=== PATIENT | female | born 1975 | race Caucasian/White ===

== ENCOUNTER → 2016-09-26 | Outpatient (CLI) | payer OTHER ==
[~2016-09-26] MED LIST: ESCI10TA PO; HYDR-3730 PO; LEVO25TA2 PO; METF500T4 PO
--- NOTE | 2016-09-26 18:07 | Diagnostic Imaging Report ---
PROCEDURE: CT abdomen and pelvis without contrast. TECHNIQUE: Multiple contiguous axial images were obtained through the abdomen and pelvis without the use of intravenous contrast. INDICATION: Recurrent urinary tract infections, microscopic hematuria, low-grade fever. Study compared 01/31/2010. FINDINGS: There are no opaque kidney stones. No opaque ureteral calculi. There is no hydronephrosis. The urinary bladder is unopacified and nearly empty. There is an IUD device within the uterus oriented to the left. Air-containing appendix visualized and normal. Liver, gallbladder, spleen, adrenals and pancreas unremarkable. The aorta is nonaneurysmal. There is no ascites, abscess, hematoma or fluid collection. No pneumatosis. No free air. The lung bases and the osseous structures nonacute. IMPRESSION: Normal appendix. No opaque kidney stone. No hydronephrosis. IUD present with no acute-appearing abnormality. Dictated by: Dictated on workstation # [id number]
== END ==
LOC: RAD 14:20
PROVIDERS: ATTEND Urology
DX: N39.0 Urinary tract infection, site not specified (principal); R31.29 Other microscopic hematuria; Z97.5 Presence of (intrauterine) contraceptive device
CPT/HCPCS: 74176

== ENCOUNTER → 2016-10-12 | Outpatient (CLI) | payer OTHER ==
--- NOTE | 2016-10-12 19:04 | Diagnostic Imaging Report ---
INDICATION: Fever, pelvic pain. One week post IUD removal. TECHNIQUE: Multiple real time brock scale sonographic images were obtained of the pelvis transabdominally and endovaginally. CORRELATION STUDY: None. FINDINGS: UTERUS/ENDOMETRIUM: Uterus measures 8.5 x 5.0 x 4.5 cm. The uterus has an unremarkable appearance. The endometrium is normal in thickness measuring 4 mm. There is a small amount of fluid noted in the endometrial canal near the cervix, may be reflective of perhaps some blood. RIGHT OVARY: 3.1 x 2.7 x 2.0 cm. LEFT OVARY: 2.9 x 2.4 x 1.9 cm. Small cysts and/or follicles of the ovaries are present. Slightly larger one suggested about the left ovary measures 1.6 x 2.0 x 1.6 cm. Vascular flow is demonstrated to both ovaries. No significant free pelvic fluid. IMPRESSION: 1. Small amount of fluid within the lower endometrial canal. This is nonspecific. This could be reflective of some blood products or perhaps residual fluid post IUD removal. 2. Likely physiologic ovarian cysts and/or follicles. Largest at the left ovary of 2 cm in size. Dictated by: Dictated on workstation # [id number]
== END ==
LOC: RAD 16:01
PROVIDERS: ATTEND Nurse Practitioner
DX: N39.0 Urinary tract infection, site not specified (principal); R50.9 Fever, unspecified; R10.2 Pelvic and perineal pain
CPT/HCPCS: 76830; 76856

== ENCOUNTER → 2016-11-22 | Outpatient (CLI) | payer OTHER ==
--- NOTE | 2016-11-22 12:11 | Diagnostic Imaging Report ---
PA and lateral views of the chest Indication: Fever and fatigue Findings: The lungs are clear. The heart size is normal. There is no effusion or pneumothorax The mediastinum and amalia appear unremarkable. Impression: Unremarkable study. Dictated by: Dictated on workstation # [id number]
[2016-11-22 13:36] LABS: THYROID STIMULATING HORMONE 1.38 UIU/ML (0.35-4.94)
[2016-11-23 07:53] LABS: VITAMIN D 25-HYDROXY (TOTAL) 33 ng/mL (30-100)
[2016-11-23 13:45] LABS: EHRLICHIA CHAFFEENSIS G ABY <1:16 (<1:16)
[2016-11-23 15:53] LABS: IGG ROCKY MOUNTAIN SPOTTED FEV <1:16 (<1:16); IGM ROCKY MOUNTAIN SPOTTED FEV <1:10 (<1:10)
[2016-11-23 20:47] LABS: LYME AB G M < 0.01 Index (0.00-0.89)
[2016-11-24 07:35] LABS: LYME AB INTERP Negative (Negative)
== END ==
LOC: RAD 11:30
PROVIDERS: ATTEND Internal Medicine Infectious Disease
DX: R50.9 Fever, unspecified (principal); R53.82 Chronic fatigue, unspecified
CPT/HCPCS: 36415; 71020; 82306; 84439; 84443; 84481; 86618; 86638; 86666; 86668; 86757; 87040

== ENCOUNTER → 2016-11-23 | Outpatient (CLI) | payer OTHER | LOC: LAB 10:18 | PROVIDERS: ATTEND Internal Medicine Infectious Disease | DX: R50.9 Fever, unspecified (principal); R53.82 Chronic fatigue, unspecified | CPT/HCPCS: 36415; 87040 ==

== ENCOUNTER → 2016-11-23 | Outpatient (CLI) | payer OTHER ==
[2016-11-23 10:51] LABS: MEAN PLATELET VOLUME 11.5 FL (7.4-10.4); RED BLOOD COUNT 4.58 10^6/uL (4.35-5.85); RED CELL DISTRIBUTION WIDTH 12.7 % (10.0-14.5); WHITE BLOOD COUNT 5.1 10^3/uL (4.3-11.0)
[2016-11-24 07:44] LABS: IMMUNOGLOBULIN IGG 1032 mg/dL (672-1680); IMMUNOGLOBULIN IGM 48 mg/dL (47-209)
== END ==
LOC: LAB 10:25
PROVIDERS: ATTEND Physician Assistant
DX: R50.9 Fever, unspecified (principal); R53.83 Other fatigue
CPT/HCPCS: 36415; 82784; 85027; 86644; 86645; 86663; 86664; 86665

== ENCOUNTER → 2016-11-24 | Outpatient (CLI) | payer OTHER ==
[~2016-11-24] MED LIST changes: +CHOL500044 PO
--- NOTE | 2016-11-24 14:39 | ECHOCARDIOGRAPHY REPORT ---
DATE OF SERVICE: 11/24/2016 2D ECHOCARDIOGRAM REFERRING PHYSICIAN: Dr. Nicho Lee and Dr. Devora Tovar TEST DATE: 11/24/2016 MEASUREMENT: LVID end diastolic 4.2, IVS thickness 1.0, LVPW thickness 1.0, left atrial diameter 3.1, ejection fraction 65%. FINDINGS: 1. Technical quality is good. 2. The left ventricle is normal in size with normal contractility, systolic function appeared to be normal, estimated ejection fraction 65%. 3. The left atrium is normal in size. No clot or thrombus was seen within the left atrium. 4. The right atrium and right ventricle are normal in size. No clot or thrombus was seen within the right side. 5. Mitral valve is normal in morphology with no significant mitral regurgitation, no mitral valve prolapse, no mitral valve stenosis. 6. Aortic valve is mildly thickened mainly on the right aortic cusp. It is still functioning normally, no significant aortic stenosis or regurgitation was seen. 7. Tricuspid valve is normal in morphology with mild tricuspid regurgitation noted by color Doppler flow. Doppler across the tricuspid valve estimated pulmonary artery pressure of 19 plus right atrial pressure. 8. Pulmonic valve is functioning normally. 9. No pericardial effusion. CONCLUSION: 1. Normal left ventricular size and systolic function, estimated ejection is fraction 65%. 2. Mild thickening of the right aortic cusp, no vegetation was noted, no significant aortic stenosis or regurgitation. 3. Estimated pulmonary artery pressure of 25 mmHg. Job ID: [id number] DocumentID: [id number] Dictated Date: 11/24/2016 13:33:30 Drone Pilot Date: 11/24/2016 13:53:45 Dictated By: MILLIE MASTERS MD
== END ==
LOC: CARD 08:04
PROVIDERS: ATTEND Internal Medicine Cardiovascular Disease
DX: R07.9 Chest pain, unspecified (principal); R50.9 Fever, unspecified
CPT/HCPCS: 93306

== ENCOUNTER 2016-11-29 13:00 | Outpatient (CLI) | payer OTHER ==
[~2016-11-29] VITALS: Ht 157.5 cm; Wt 69.9 kg
[~2016-11-29 13:00] MED LIST changes: -CHOL500044 PO
[2016-11-29] MEDS ORDERED: CHOL500044 PO (13:12)
[2016-11-30] MEDS ORDERED: PANT40TA2 PO (12:22)
== END 2016-11-29 13:22 ==
LOC: PREOP 13:00
PROVIDERS: ATTEND Surgery
DX: Z01.818 Encounter for other preprocedural examination (principal); K21.9 Gastro-esophageal reflux disease without esophagitis; R19.5 Other fecal abnormalities

== ENCOUNTER 2016-11-30 10:00 | Day surgery (SDC) | payer OTHER ==
[~2016-11-30 10:00] MED LIST changes: +CHOL500044 PO
[2016-11-30] MEDS ORDERED: HURRICAINE EXT TUBE (BENZOCAINE) XX PRN (10:15)
[2016-11-30] MEDS ORDERED: NS IV 500 ML 500 ML IV PRN (10:15)
[2016-11-30] MEDS ORDERED: FLUMAZENIL (ROMAZICON) 0.1 MG/ML 5 ML VIAL INJ PRN (10:15)
[2016-11-30] MEDS ORDERED: NALOXONE 0.4 MG/ML 1 ML (NARCAN) VIAL IVP PRN (10:15)
[2016-11-30 10:18] VITALS: BP 123/69
[2016-11-30] MEDS ORDERED: NS IV 500 ML 500 ML ONE (10:19)
--- NOTE | 2016-11-30 11:12 | Conscious Sedation/ASA ---
Conscious Sedation Pre-Proced Time Reviewed: 11:12 ASA Class: 2 Airway Mallampati Classification: ([place] appropriate class) I. II. III, IV Lungs Heart ASA score ASA 1: a normal healthy patient ASA 2: a patient with a mild systemic disease (mid diabetes, controlled hypertension, obesity ASA 3: a patient with a severe systemic disease that limits activity (angina , COPD, prior Myocardial infarction) ASA 4: a patient with an incapacitating disease that is a constant threat to life (CHF, renal failure) ASA 5: a moribund patient not expected to survive 24 hrs. (ruptured aneurysm) ASA 6: a declared brain patient whose organs are being harvested. For emergent operations, add the letter E after the classification Grade 1 Sedation Plan: Discussed options with patient/fam Note The patient is an appropriate candidate to undergo the planned procedure, sedation, and anesthesia. The patient immediately re-assessed prior to indication. GABBI MEDEL MD Nov 30, 2016 11:12 am
[2016-11-30] MEDS ORDERED: MIDAZOLAM 2 MG/2 ML (VERSED) VIAL ONE ×5 (11:46→11:47)
[2016-11-30] MEDS ORDERED: fentaNYL INJECTION 100 MCG/2 ML AMP ONE ×2 (11:46)
[2016-11-30] MEDS ORDERED: HURRICAINE EXT TUBE (BENZOCAINE) ONE (11:47)
[2016-11-30] MEDS: fentaNYL INJECTION 100 MCG/2 ML AMP IVP PRN ×3 (11:55→12:05)
[2016-11-30] MEDS: MIDAZOLAM 2 MG/2 ML (VERSED) VIAL IVP PRN ×4 (11:56→12:06)
--- NOTE | 2016-11-30 12:19 | Endoscopy Procedure Report ---
Endoscopy Report Date: Nov 30, 2016 Preoperative Diagnosis: GERD. Change in bowel habits Study Performed: Upper Endoscopy, Colonoscopy Procedure Instrument: Endoscope Endo Procedure/Findings Findings 1.: Normal, Gastric Ulcer Copy Copies To 1: MARKO MENDOZA MD,GABBI Allen MD Nov 30, 2016 12:19 pm
[2016-11-30] MEDS ORDERED: PANT40TA2 PO ×2 (12:22)
--- NOTE | 2016-11-30 12:24 | Discharge Inst-Simple/Standard ---
Discharge Inst-Standard Discharge Medications New, Converted or Re-Newed RX: RX on Chart Patient Instructions/Follow Up Plan of Care/Instructions/FU: follow-up with her primary Activity as Tolerated: Yes Discharge Diet: No Restrictions GABBI MEDEL MD Nov 30, 2016 12:24 pm
[2016-11-30 12:35] VITALS: BP 102/57
[2016-11-30 13:05] VITALS: BP 115/73
[2016-11-30 13:16] VITALS: BP 115/73
--- NOTE | 2016-11-30 14:48 | OPERATIVE REPORT ---
DATE OF SERVICE: 11/30/2016 PROCEDURES: 1. Upper gastrointestinal endoscopy with antral biopsy. 2. Colonoscopy. SURGEON: Gabbi Medel MD INDICATION FOR PROCEDURE: This lady came in for an upper endoscopy to evaluate symptoms of reflux disease and for colonoscopy to investigate a change in her bowel habits. Informed consent was obtained after reviewing the procedures in detail. DESCRIPTION OF PROCEDURE: Upper GI endoscopy/antral biopsy: She was placed in left lateral decubitus position and her vital signs were monitored. Conscious sedation was achieved using Versed and fentanyl. The flexible gastroscope was introduced down the esophagus, passed the stomach, into the proximal duodenum. FINDINGS: ESOPHAGUS: Grade II esophagitis. STOMACH: Multiple distal gastric erosions and shallow ulcers were found. Photo documentation and biopsy for H. pylori were obtained. DUODENUM: Normal. She tolerated the procedure well and was turned around in preparation for colonoscopy. IMPRESSION: Symptoms of reflux disease, esophagitis and gastric ulcers. Helicobacter status pending. PROCEDURE: Colonoscopy. DESCRIPTION OF PROCEDURE: Digital rectal examination was unremarkable. The colonoscope was then introduced into the rectum and advanced all the way up to the cecum. The scope was then withdrawn slowly and the mucosa examined in a systematic fashion. There was no abnormality. She tolerated the procedure well and was taken back to the nursing area in a stable condition. IMPRESSION: Change in bowel habits. Normal colonoscopy. Job ID: [id number] DocumentID: [id number] Dictated Date: 11/30/2016 12:15:18 Clinical Psychologist Licensed Date: 11/30/2016 13:36:40 Dictated By: GABBI MEDEL MD MTDD
== END 2016-11-30 13:15 | disposition home or self-care (01) ==
LOC: ENDO 10:00
PROVIDERS: ATTEND Surgery
DX: R19.4 Change in bowel habit (principal); K20.9 Esophagitis, unspecified; K25.9 Gastric ulcer, unspecified as acute or chronic, without hemorrhage or perforation; K21.9 Gastro-esophageal reflux disease without esophagitis; F32.9 Major depressive disorder, single episode, unspecified; Z79.899 Other long term (current) drug therapy
CPT/HCPCS: 84703; 88305

== ENCOUNTER → 2016-12-01 | Outpatient (CLI) | payer OTHER ==
[~2016-12-01] MED LIST changes: +PANT40TA2 PO
== END ==
LOC: LAB 12:47
PROVIDERS: ATTEND Physician Assistant
DX: R50.9 Fever, unspecified (principal); R53.83 Other fatigue
CPT/HCPCS: 36415; 87799

== ENCOUNTER → 2016-12-04 | Outpatient (CLI) | payer OTHER | LOC: LAB 12:00 | PROVIDERS: ATTEND Physician Assistant | DX: R53.83 Other fatigue (principal) | CPT/HCPCS: 36415; 86668 ==

== ENCOUNTER → 2016-12-06 | Outpatient (CLI) | payer OTHER | DX: R50.9 Fever, unspecified (principal); G93.3 Postviral and related fatigue syndromes ==

== ENCOUNTER → 2018-04-24 | Outpatient (CLI) | payer OTHER ==
[~2018-04-24] MED LIST changes: +METF-397 PO; -METF500T4 PO
[2018-04-24 08:38] LABS: BASOPHILS % (AUTO) 1 % (0-10); EOSINOPHILS # (AUTO) 0.1 10^3/uL (0.0-0.3); EOSINOPHILS % (AUTO) 1 % (0-10); HEMATOCRIT 42 % (35-52); HEMOGLOBIN 14.1 G/DL (11.5-16.0); LYMPHOCYTES # (AUTO) 1.9 X 10^3 (1.0-4.0); LYMPHOCYTES % (AUTO) 33 % (12-44); MEAN CORPUSCULAR HEMOGLOBIN 29 PG (25-34); MEAN CORPUSCULAR HGB CONC 34 G/DL (32-36); MEAN CORPUSCULAR VOLUME 86 FL (80-99); MEAN PLATELET VOLUME 10.7 FL (7.4-10.4); MONOCYTES # (AUTO) 0.6 X 10^3 (0.0-1.0); MONOCYTES % (AUTO) 10 % (0-12); NEUTROPHILS # (AUTO) 3.2 X 10^3 (1.8-7.8); NEUTROPHILS % (AUTO) 55 % (42-75); PLATELET COUNT 276 10^3/uL (130-400); RED BLOOD COUNT 4.83 10^6/uL (4.35-5.85); RED CELL DISTRIBUTION WIDTH 12.9 % (10.0-14.5); WHITE BLOOD COUNT 5.8 10^3/uL (4.3-11.0)
[2018-04-24 08:54] LABS: ALANINE AMINOTRANSFERASE 23 U/L (0-55); ALBUMIN 4.5 GM/DL (3.2-4.5); ALKALINE PHOSPHATASE 55 U/L (40-136); BILIRUBIN,TOTAL 0.5 MG/DL (0.1-1.0); BUN/CREATININE RATIO 20; CALCIUM 9.8 MG/DL (8.5-10.1); CARBON DIOXIDE 22 MMOL/L (21-32); CHLORIDE 105 MMOL/L (98-107); CHOLESTEROL 258 MG/DL (< 200); CREATININE SERUM 0.85 MG/DL (0.60-1.30); GFR ESTIMATED > 60; GLUCOSE 100 MG/DL (70-105); HDL CHOLESTEROL 63 MG/DL (40-60); POTASSIUM 3.8 MMOL/L (3.6-5.0); SODIUM 138 MMOL/L (135-145); TOTAL PROTEIN 7.5 GM/DL (6.4-8.2); TRIGLYCERIDES 124 MG/DL (<150); VLDL CHOLESTEROL 25 MG/DL (5-40)
[2018-04-24 09:15] LABS: FREE T4 (FREE THYROXINE) 0.95 NG/DL (0.70-1.48)
== END ==
LOC: LAB 08:22
PROVIDERS: ATTEND Family Medicine
DX: Z00.01 Encounter for general adult medical examination with abnormal findings (principal); R53.83 Other fatigue
CPT/HCPCS: 36415; 80053; 80061; 84439; 84443; 85025

== ENCOUNTER → 2019-08-22 | Outpatient (CLI) | payer OTHER ==
--- NOTE | 2019-08-22 13:49 | Diagnostic Imaging Report ---
EXAMINATION: Digital mammogram bilateral screening. The current study was also evaluated with a Computer Aided Detection (CAD) system. 3-D tomosynthesis was also performed and reviewed. INDICATION: Screening. This study was compared to the prior exam of 12/04/2014. At this time, there are no current complaints. FINDINGS: The fibroglandular tissue in both breasts is heterogeneously dense. This does limit the sensitivity of this exam. Overall, there does not appear to have been any significant change when compared to the prior study. No primary or secondary sign of malignancy is noted. 3D tomographic images fail to show any sign of malignancy. IMPRESSION: 1. There is no evidence for malignancy. 2. The patient should have her annual bilateral screening mammogram on schedule in August 2020. ACR BI-RADS Category 1: Negative. Result letter will be mailed to the patient. Note: At least 10% of breast cancer is not imaged by mammography. Dictated by: Dictated on workstation # [id number]
== END ==
LOC: RAD 10:08
PROVIDERS: ATTEND Obstetrics & Gynecology
DX: Z12.31 Encounter for screening mammogram for malignant neoplasm of breast (principal)
CPT/HCPCS: 77067

== ENCOUNTER 2021-02-24 10:00 | Outpatient (CLI) | payer OTHER ==
[~2021-02-24] VITALS: Ht 157.5 cm; Wt 70.5 kg
[2021-02-24] MEDS ORDERED: PHEN35TA PO (10:20)
[2021-02-24] MEDS ORDERED: NORT50CA PO (10:20)
[2021-02-24] MEDS ORDERED: SUCR1TAB36 PO (10:20)
[2021-02-24] MEDS ORDERED: DOCU-143 PO (10:50)
[2021-02-24] MEDS ORDERED: VITA1CAP PO (10:50)
[2021-02-24] MEDS ORDERED: OMEP40CA6 PO (10:50)
[2021-02-24] MEDS ORDERED: MAGN400C PO (10:50)
[2021-02-24] MEDS ORDERED: MV-M1TAB20 PO (10:50)
== END 2021-02-24 12:36 ==
LOC: PREOP 10:00
PROVIDERS: ATTEND Surgery
DX: Z01.812 Encounter for preprocedural laboratory examination (principal); K21.9 Gastro-esophageal reflux disease without esophagitis; Z20.822 Contact with and (suspected) exposure to COVID-19
CPT/HCPCS: 87635

== ENCOUNTER 2021-02-25 10:22 | Day surgery (SDC) | payer OTHER ==
[2021-02-25] VITALS (13 sets, daily range): BP systolic 97–131; BP diastolic 55–94
[~2021-02-25] VITALS: Ht 157.5 cm; Wt 70.5 kg
[~2021-02-25 10:22] MED LIST changes: +DOCU-143 PO; +MAGN400C PO; +MV-M1TAB20 PO; +NORT50CA PO; +OMEP40CA6 PO; +PHEN35TA PO; +SUCR1TAB36 PO; +VITA1CAP PO
[2021-02-25] MEDS ORDERED: NS IV 1000 ML 1,000 ML IV STA (10:24)
[2021-02-25] MEDS ORDERED: fentaNYL INJ 100 MCG/2 ML AMP IVP ONE (10:30)
[2021-02-25] MEDS ORDERED: MIDAZOLAM 5 MG/5 ML (VERSED) VIAL IV ONE (10:30)
[2021-02-25] MEDS ORDERED: LIDOCAINE JELLY 2% 6 ML SYRINGE MM PRN (10:30)
[2021-02-25] MEDS ORDERED: HURRICAINE EXT TUBE (BENZOCAINE) XX PRN (10:30)
[2021-02-25] MEDS ORDERED: NS IV 500 ML 500 ML ONE (10:31)
[2021-02-25] MEDS ORDERED: NS IV 500 ML 500 ML IV SCH (10:45)
--- NOTE | 2021-02-25 11:01 | Progress Note-Pre Operative ---
Pre-Operative Progress Note H&P Reviewed The H&P was reviewed, patient examined and no changes noted. Date Seen by Provider: Feb 25, 2021 Time Seen by Provider: 11:00 Date H&P Reviewed: Feb 25, 2021 Time H&P Reviewed: 11:00 Pre-Operative Diagnosis: GERD, dysphagia RUBY JOSEPH MD Feb 25, 2021 11:01
--- NOTE | 2021-02-25 11:01 | Conscious Sedation/ASA ---
Conscious Sedation Pre-Proced Time 11:00 ASA Score 2 For ASA 3 and 4: Consider anesthesia and medical clearance. Also, for patients with a history of failed moderate sedation consider anesthesia. Airway Lungs Heart ASA score ASA 1: a normal healthy patient ASA 2: a patient with a mild systemic disease (mid diabetes, controlled hypertension, obesity ASA 3: a patient with a severe systemic disease that limits activity (angina, COPD, prior Myocardial infarction) ASA 4: a patient with an incapacitating disease that is a constant threat to life (CHF, renal failure) ASA 5: a moribund patient not expected to survive 24 hrs. (ruptured aneurysm) ASA 6: a declared brain- patient whose organs are being harvested. For emergent operations, add the letter E after the classification Mallampati Classification Grade 2 Sedation Plan Analgesia, Amnesia, Plan communicated to team members, Discussed options with patient/fam, Discussed risks with patient/fam The patient is an appropriate candidate to undergo the planned procedure, sedation, and anesthesia. The patient immediately re-assessed prior to indication. RUBY JOSEPH MD Feb 25, 2021 11:01
--- NOTE | 2021-02-25 11:03 | Discharge Inst-Surgical ---
D/C Lap Instructions-OPAL Follow Up Activity as tolerated High Fiber Diet 25g or more per day Avoid Alcohol, Caffeine, Spicy [place] and Acid foods. Drink 64 fluid oz or more of fluids per day. Symptoms to Report: Fever over 101 degree F, Nausea/Vomiting If any problems/questions: Contact your physician or go to Emergency Room RUBY JOSEPH MD Feb 25, 2021 11:03
[2021-02-25] MEDS ORDERED: ONDANSETRON 4 MG (ZOFRAN) ORAL DISSOLVE TAB PO PRN (11:15)
[2021-02-25] MEDS ORDERED: ONDANSETRON 4 MG/2 ML (SDV) Z0FRAN IVP PRN (11:15)
--- NOTE | 2021-02-25 13:21 | Progress Note-Post Operative ---
Post-Operative Progess Note Surgeon (s)/Critical Care Nurse Practitioner (s) Surgeon RUBY JOSEPH MD Critical Care Nurse Practitioner: none Pre-Operative Diagnosis GERD, dysphagia Post-Operative Diagnosis reflux esophagitis(stage 2), small type 1 HH(2cm), mod-severe gastritis. Procedure & Operative Findings Date of Procedure 02/25/21 Procedure Performed/Findings EGD with bx. Anesthesia Type cs Estimated Blood Loss Estimated blood loss (mL): minimal Specimens/Packing Specimens Removed ge jxn, antrum RUBY JOSEPH MD Feb 25, 2021 13:21
--- NOTE | 2021-02-25 15:00 | OPERATIVE REPORT ---
DATE OF SERVICE: 02/25/2021 ATTENDING PRIMARY CARE PHYSICIAN: Dr. Nicho Lee. PREOPERATIVE DIAGNOSES: Gastroesophageal reflux disease and regurgitation. POSTOPERATIVE DIAGNOSES: Reflux esophagitis stage II, small to moderate-sized type 1 sliding hiatal hernia approximately 2 cm in size, moderate to severe gastritis more towards the antrum of the stomach. PROCEDURES PERFORMED: EGD with biopsy. SURGEON: Ruby Joseph MD. ANESTHESIA: Conscious sedation. ESTIMATED BLOOD LOSS: Minimal. FINDINGS: Reflux esophagitis stage II, small to moderate-sized type 1 sliding hiatal hernia approximately 2 cm in size, moderate to severe gastritis more towards the antrum of the stomach. DISPOSITION: The patient tolerated the procedure well. INDICATIONS FOR PROCEDURE: The patient is a 45-year-old female, who has had increasing issues with reflux with epigastric burning sensation and will also have nocturnal regurgitation. She states that this has been much worse in the last month. She is not sure if this is related to certain types of foods. She does drink caffeinated beverages as well as alcohol; however, more on a social basis. She has lost weight intentionally while being on a diet. DESCRIPTION OF PROCEDURE: The patient was brought to the endoscopy suite and laid in the left lateral decubitus position with the head slightly elevated. After adequate IV pain and sedative medications and conscious sedation anesthesia, the mouthpiece was applied. The endoscope was placed into the mouth visualizing the pharynx and hypopharyngeal region. Vocal cords, epiglottis and vallecula identified and appeared to be normal. The endoscope was then gently intubated into the esophageal opening and esophagus insufflated. The endoscope was then advanced to the first, second and third portions of the esophagus. At the level of the GE junction, reflux esophagitis stage II identified. The GE junction was also intrathoracic consistent with a hiatal hernia. A biopsy was taken of the GE junction with visualization of good hemostasis. The endoscope was then advanced in the stomach and endoscope retroflexed, visualizing a small type 1 hiatal hernia approximately 2 cm in size. There was a moderate to severe severity gastritis more towards the stomach antrum. No formal ulcerations, polyps or any neoplasms. A biopsy was taken of the antrum to rule out H. pylori with visualization of good hemostasis. The endoscope was then advanced to the pylorus and the first and second portion of the duodenum, which appeared normal with no distal obstructions or any ulcerations. The endoscope was then slowly withdrawn while taking a second look and suctioning of residual air with no additional findings. The patient tolerated the procedure well. We will recommend the necessary lifestyle and diet accommodation including small and more frequent meals, avoidance of eating at night as well as head elevation while lying supine. She also needs to avoid alcoholic and caffeinated beverages, spicy, greasy and acidic foods as well as to continue the recently prescribed Protonix to 40 mg daily as well as the Carafate 1 gram q.i.d. for the next two weeks, then on a p.r.n. basis. Job ID: [id number] DocumentID: [id number] Dictated Date: 02/25/2021 11:45:07 Jewelry Model Maker Date: 02/25/2021 14:59:29 Dictated By: RUBY JOSEPH MD MTDD
== END 2021-02-25 12:26 | disposition home or self-care (01) ==
LOC: ENDO 10:22
PROVIDERS: ATTEND Surgery
DX: K29.50 Unspecified chronic gastritis without bleeding (principal); K21.00 Gastro-esophageal reflux disease with esophagitis, without bleeding; K44.9 Diaphragmatic hernia without obstruction or gangrene; K21.9 Gastro-esophageal reflux disease without esophagitis; I10 Essential (primary) hypertension; F41.9 Anxiety disorder, unspecified; F32.9 Major depressive disorder, single episode, unspecified; Z87.891 Personal history of nicotine dependence; Z79.899 Other long term (current) drug therapy
CPT/HCPCS: 84703